=== PATIENT | male | born 1980 | race Caucasian/White ===

== ENCOUNTER 2020-09-26 10:18 | Emergency (ER) | payer OTHER ==
[~2020-09-26] VITALS: Ht 170.2 cm; Wt 108.9 kg
[2020-09-26] MEDS ORDERED: NORVASC 2.5 MG2.5 M1 PO (10:39)
[2020-09-26 10:44] VITALS: BP 142/74
--- NOTE | 2020-09-26 14:28 | EKG ---
[place] [address] [employer] [place] [address] ELECTROCARDIOGRAM REPORT Name: JOSH ACEVES Room #: ADRIANA Mosley#: [id number] Admission: 09/26/20 Attend Phys: Discharge: 09/26/20 Date of : 76 Report #: [id number] [facility] ED Test Date: 2020-09-26 Test Time: 10:24:38 Pat Name: JOSH ACEVES Department: Room: Gender: M Political Organizer: GORAN : 1980 Requested By: Casey Navarro Order Number: [id number] MD: David Cueva Measurements Intervals [place] Rate: 95 P: 18 VT: 148 QRS: 62 QRSD: 111 T: -19 QT: 357 QTc: 449 Interpretive Statements Sinus rhythm Borderline T abnormalities, inferior leads Baseline wander in lead(s) V1 No previous ECG available for comparison Electronically Signed On 09-26-2020 14:28:22 [employer] by David Cueva [email or web address] <ELECTRONICALLY SIGNED> By: David Cueva MD, [facility] 09/26/20 1428 1024 [facility] David Cueva MD, FACC /EPI
== END 2020-09-26 10:43 | disposition home or self-care (01) ==
LOC: ER 10:18
DX: I10 Essential (primary) hypertension (principal); R42 Dizziness and giddiness